=== PATIENT | female | born 1930 | race Caucasian/White ===

== ENCOUNTER 2018-11-01 09:33 | Outpatient (CLI) | payer MEDICARE ==
--- NOTE | 2018-11-01 11:21 | CT ---
CT LUMBAR SPINE: 11/01/2018 HISTORY: Severe low back pain. Pain in the right hip. Prior back surgery. Lumbar stenosis with neurogenic c laudication. COMPARISON: None. TECHNIQUE: Axial CT imaging at 2.5 mm intervals, though the lumbar spine, without contrast. Coronal and sagitta l reformatted imaging obtained. FINDINGS: Evaluation for central canal and/or neural foraminal stenosis is limited on routine CT. There are pe dicle screws present bilaterally at L3, L4, and L5. There is extensive atherosclerotic calcification of the abdominal aorta and its branches, not well ch aracterized on this examination. Probable incompletely assessed, small, right upper pole renal cysts. Partially visualized sigmoid d iverticulosis. Significant degenerative changes seen involving the bilateral sacroiliac joints. T11-T12: Disk space narrowing, degenerative endplate change, and vacuum disk formation. Significant bilateral facet hypertrophy, right greater than left. Probable moderate right and mild left neural foraminal stenosis. No osseous cause of significant central canal stenosis. T12-L1: Vacuum disk formation noted with disk space narrowing and bilateral facet hypertrophy, right greater than left. Significant right neural foraminal stenosis. Bilateral laminectomy noted. L1-L2: Disk space narrowing and vacuum disk formation present. Bilateral facet hypertrophy noted, l eft greater than right. Disk bulge suspected. Probable significant central canal and left neural fo raminal stenosis. Probable mild right neural foraminal stenosis. L2-L3: Disk space narrowing, degenerative endplate change, and vacuum disk formation with bilateral significant facet hypertrophy, left greater than right. Disk bulge noted with probable moderate cent ral canal stenosis and significant bilateral neural foraminal stenosis, left greater than right. L3-L4; Partial osseous fusion at the intervertebral disk level. Significant bilateral facet hypertr ophy. Bilateral laminectomy. At least mild neural foraminal stenosis bilaterally and at least mild central canal stenosis. L4-L5: Osseous fusion at the intervertebral disk level. The patient is status post bilateral jaxson ctomy. Evaluation for neural foraminal stenosis is limited secondary to streak artifact from postope rative hardware. L5-S1: Disk space narrowing, vacuum disk formation, and prominent bilateral facet hypertrophy with m oderate/severe bilateral neural foraminal stenosis and at least mild central canal stenosis. No worrisome lytic or blastic bone lesion. No acute fracture or dislocation. There is degenerative dextroscoliosis of the mid lumbar spine. Incompletely imaged sliding hiatal hernia noted. IMPRESSION: 1. Extensive postoperative and degenerative change within the lumbar spine. Evaluation for underlyi ng central canal and/or neural foraminal stenosis is limited. 2. Lumbar spine myelogram may be beneficial as clinically warranted. 3. Extensive atherosclerotic disease, incompletely assessed on this examination. POS: SHIRA
== END 2018-11-01 09:34 | disposition home or self-care (01) ==
LOC: CT 09:33
PROVIDERS: ATTEND Anesthesiology Pain Medicine
DX: M48.062 Spinal stenosis, lumbar region with neurogenic claudication (principal); M47.816 Spondylosis without myelopathy or radiculopathy, lumbar region; I70.0 Atherosclerosis of aorta; Z98.890 Other specified postprocedural states
CPT/HCPCS: 72131